=== PATIENT | female | born 1945 | race Caucasian/White ===

== ENCOUNTER 2019-02-05 10:53 | Outpatient (CLI) | payer MEDICARE ==
--- NOTE | 2019-02-05 12:38 | ULT ---
ULTRASOUND ABDOMEN: 02/05/19 HISTORY: Heavy alcohol consumption, abdominal distention. FINDINGS: The liver demonstrates increased echogenicity consistent with fatty infiltration. No focal mass or in trahepatic ductal dilatation is seen. The spleen is normal measuring 8.7 cm in length. No gallstones, gallbladder wall thickening or pericholecystic fluid is seen. The common duct measures [address] The pancreas and abdominal aorta are not satisfactorily visualized due to overlying bowel gas. The visualized portions of the IVC are unremarkable. There is a 1.5 cm right renal cyst. The left ki dney is normal. No free fluid is seen. IMPRESSION: 1. Fatty liver. 2. No evidence of cholelithiasis. 3. Right renal cyst. POS: [facility]
== END 2019-02-05 10:54 | disposition home or self-care (01) ==
LOC: BICULT 10:53
PROVIDERS: ATTEND Family Medicine
DX: R14.0 Abdominal distension (gaseous) (principal); F10.20 Alcohol dependence, uncomplicated; K76.0 Fatty (change of) liver, not elsewhere classified; N28.1 Cyst of kidney, acquired
CPT/HCPCS: 76700

== ENCOUNTER 2022-01-10 16:02 | Inpatient (IN) | payer MEDICARE, OTHER ==
[2022-01-10 16:28] LABS: #Basophils 0.1 thou/uL (0.0-0.2); #Eosinphils 0.2 thou/uL (0.0-0.7); #Lymphocytes 2.2 thou/uL (1.20-3.40); #Monocytes 0.9 thou/uL (0.11-0.59); #Neutrophils 5.8 thou/uL (1.40-6.50); %Basophils 0.8 % (0.0-1.0); %Eosinophils 1.7 % (0.0-10.0); %Lymphocytes 23.5 % (21.0-51.0); Hemoglobin 14.3 g/dL (12.0-16.0); Mean Corpuscular Hemoglobin 31.1 pg (27.0-31.0); Mean Corpuscular Volume 94.3 fL (78.0-98.0); Mean Platelet Volume 7.7 fL (7.4-10.4); Platelet Count 263 thou/uL (130-400); RBC Distribution Width 12.1 % (11.5-14.5); White Blood Cell (WBC) Count 9.1 thou/uL (4.8-10.8)
[2022-01-10 16:39] LABS: Prothrombin Time 13.2 sec (12.0-14.7)
[2022-01-10 16:40] LABS: PTT 32.9 sec (22.9-36.1)
[2022-01-10 16:50] LABS: ALT (SGPT) 19 U/L (8-55); AST (SGOT) 21 U/L (5-34); Albumin 4.3 g/dL (3.4-4.8); Alkaline Phosphatase 80 U/L (40-110); Anion Gap 16 mmol/L (10-20); BUN (Urea Nitrogen) 16 mg/dL (9.8-20.1); Bilirubin, Total 0.6 mg/dL (0.2-1.2); Calc. Creatinine Clearance 0 mL/min (70-130); Calcium 9.7 mg/dL (7.8-10.44); Carbon Dioxide 25 mmol/L (23-31); Chloride 107 mmol/L (98-107); Estimated GFR 51; Globulin 3.1 g/dL (2.4-3.5); Glucose 119 mg/dL (83-110); Potassium 3.7 mmol/L (3.5-5.1); Protein, Total 7.4 g/dL (5.8-8.1); Sodium 144 mmol/L (136-145)
[2022-01-10] MEDS ORDERED: Acetaminophen 325 MG TAB PO PRN (19:37)
[2022-01-10] MEDS ORDERED: Diltiazem 125 MG in Sodium Chloride 0.9% 100 ML IVPB SCH (21:00)
[2022-01-10] MEDS ORDERED: Enoxaparin Sodium 40 MG/0.4 ML SYRINGE SC SCH (21:00)
[2022-01-10 21:54] VITALS: BMI 24.7
[2022-01-10 22:03] LABS: Magnesium 1.9 mg/dL (1.6-2.6); Phosphorus 4.2 mg/dL (2.3-4.7)
[2022-01-11 04:29] LABS: #Basophils 0.1 thou/uL (0.0-0.2); #Eosinphils 0.2 thou/uL (0.0-0.7); #Lymphocytes 3.3 thou/uL (1.20-3.40); #Monocytes 1.2 thou/uL (0.11-0.59); #Neutrophils 4.9 thou/uL (1.40-6.50); %Eosinophils 1.7 % (0.0-10.0); %Lymphocytes 33.9 % (21.0-51.0); %Monocytes 12.8 % (0.0-10.0); %Neutrophils 50.6 % (42.0-75.0); Hemoglobin 13.5 g/dL (12.0-16.0); Mean Corpuscular HGB CONC 33.3 g/dL (32.0-36.0); Mean Corpuscular Hemoglobin 31.4 pg (27.0-31.0); Mean Corpuscular Volume 94.3 fL (78.0-98.0); Mean Platelet Volume 7.8 fL (7.4-10.4); Platelet Count 238 thou/uL (130-400); RBC Distribution Width 12.2 % (11.5-14.5); Red Blood Cell (RBC) Count 4.29 mill/uL (4.20-5.40); White Blood Cell (WBC) Count 9.6 thou/uL (4.8-10.8)
[2022-01-11 05:00] LABS: Anion Gap 12 mmol/L (10-20); BUN (Urea Nitrogen) 13 mg/dL (9.8-20.1); Calc. Creatinine Clearance 57 mL/min (70-130); Carbon Dioxide 25 mmol/L (23-31); Chloride 109 mmol/L (98-107); Estimated GFR 75; Glucose 98 mg/dL (83-110); Potassium 3.4 mmol/L (3.5-5.1); Sodium 143 mmol/L (136-145)
[2022-01-11] MEDS ORDERED: Diltiazem HCl 125 MG in Premix Bag 1 BAG IVPB SCH (09:00)
[2022-01-11] MEDS: Potassium Chloride 20 MEQ TAB PO SCH (09:25)
[2022-01-11] MEDS: Bumetanide 1 MG TAB PO SCH (09:25)
[2022-01-11] MEDS ORDERED: Potassium Chloride 20 MEQ TAB PO SCH (10:00)
[2022-01-11] MEDS ORDERED: Digoxin 0.5 MG/2 ML AMP SLOW IVP SCH (18:30)
[2022-01-11] MEDS: Apixaban 5 MG TAB PO SCH (20:34)
[2022-01-12] MEDS ORDERED: Multivitamin W/ Minerals 1 TAB PO SCH (09:00)
[2022-01-12] MEDS ORDERED: Dronedarone HCl 400 MG TAB PO SCH (09:30)
[2022-01-12 09:54] LABS: Anion Gap 15 mmol/L (10-20); BUN (Urea Nitrogen) 11 mg/dL (9.8-20.1); Calc. Creatinine Clearance 55 mL/min (70-130); Calcium 9.2 mg/dL (7.8-10.44); Carbon Dioxide 22 mmol/L (23-31); Chloride 111 mmol/L (98-107); Estimated GFR 72; Glucose 97 mg/dL (83-110); Potassium 3.8 mmol/L (3.5-5.1); Sodium 144 mmol/L (136-145)
[2022-01-12] MEDS ORDERED: Potassium Chloride 20 MEQ TAB PO SCH (10:00)
[2022-01-12] MEDS: Potassium Chloride 20 MEQ TAB PO SCH (11:56)
[2022-01-12] MEDS: Apixaban 5 MG TAB PO SCH (11:57)
[2022-01-12] MEDS: Bumetanide 1 MG TAB PO SCH (11:57)
[2022-01-12] MEDS: Dronedarone HCl 400 MG TAB PO SCH ×2 (12:06→18:13)
[2022-01-12 17:28] VITALS: BP 160/70; TEMP 97.5
== END 2022-01-12 19:30 | disposition home or self-care (01) | DRG 310 ==
LOC: ERS 16:02 → ERHOLD 17:40 → OBSVTOIN 20:08 → 2NO 21:36
PROVIDERS: ADMIT Student in an Organized Health Care Education/Training Program; ATTEND Family Medicine
PROC: B24BZZ4 Ultrasonography of Heart with Aorta, Transesophageal (ICD-10-PCS; principal; 2022-01-12)
PROC: 5A2204Z Restoration of Cardiac Rhythm, Single (ICD-10-PCS; 2022-01-12)
DX: I48.0 Paroxysmal atrial fibrillation (principal); Z20.822 Contact with and (suspected) exposure to COVID-19; I10 Essential (primary) hypertension; E78.5 Hyperlipidemia, unspecified; K58.9 Irritable bowel syndrome, unspecified; M81.0 Age-related osteoporosis without current pathological fracture; I48.92 Unspecified atrial flutter; E87.6 Hypokalemia; Z88.1 Allergy status to other antibiotic agents; Z79.899 Other long term (current) drug therapy
CPT/HCPCS: 36415; 71045; 80048; 80053; 83735; 84100; 84443; 84484; 85025; 85610; 85730; 92960; 93005; 93010; 93306; 93312; 96365; 96366; 96376; J1160; J1650; U0003; U0005

== ENCOUNTER 2022-03-20 11:39 | Emergency (ER) | payer MEDICARE, OTHER ==
[2022-03-20 12:24] LABS: #Lymphocytes 2.7 thou/uL (1.20-3.40); #Monocytes 0.8 thou/uL (0.11-0.59); #Neutrophils 7.2 thou/uL (1.40-6.50); %Basophils 0.2 % (0.0-1.0); %Eosinophils 0.3 % (0.0-10.0); %Lymphocytes 25.4 % (21.0-51.0); %Monocytes 7.6 % (0.0-10.0); %Neutrophils 66.4 % (42.0-75.0); Hemoglobin 14.1 g/dL (12.0-16.0); Mean Corpuscular Hemoglobin 31.5 pg (27.0-31.0); Mean Corpuscular Volume 92.7 fL (78.0-98.0); Mean Platelet Volume 8.2 fL (7.4-10.4); Platelet Count 257 thou/uL (130-400); Red Blood Cell (RBC) Count 4.46 mill/uL (4.20-5.40); White Blood Cell (WBC) Count 10.8 thou/uL (4.8-10.8)
[2022-03-20 12:38] LABS: ALT (SGPT) 22 U/L (8-55); AST (SGOT) 24 U/L (5-34); Albumin 4.3 g/dL (3.4-4.8); Alkaline Phosphatase 72 U/L (40-110); Anion Gap 18 mmol/L (10-20); BUN (Urea Nitrogen) 16 mg/dL (9.8-20.1); Calc. Creatinine Clearance 0 mL/min (70-130); Calcium 9.8 mg/dL (7.8-10.44); Carbon Dioxide 20 mmol/L (23-31); Chloride 106 mmol/L (98-107); Estimated GFR 39; Globulin 3.4 g/dL (2.4-3.5); Glucose 107 mg/dL (83-110); Potassium 3.6 mmol/L (3.5-5.1); Protein, Total 7.7 g/dL (5.8-8.1); Sodium 140 mmol/L (136-145)
[2022-03-20] MEDS ORDERED: PROPOFOL 20 ML ONE (14:28)
== END 2022-03-20 16:45 | disposition home or self-care (01) ==
LOC: ERS 11:39
DX: I48.91 Unspecified atrial fibrillation (principal); E78.5 Hyperlipidemia, unspecified; I10 Essential (primary) hypertension; Z79.01 Long term (current) use of anticoagulants; Z79.899 Other long term (current) drug therapy
CPT/HCPCS: 36415; 71045; 80053; 84443; 84484; 85025; 92960; 93005; 96374; J2704

== ENCOUNTER 2023-02-19 14:12 | Outpatient (CLI) | payer MEDICARE | END 2023-02-19 14:13 | disposition home or self-care (01) | LOC: BICMAMMO 14:12 | PROVIDERS: ATTEND Family Medicine | DX: Z12.31 Encounter for screening mammogram for malignant neoplasm of breast (principal) | CPT/HCPCS: 77063; 77067 ==

== ENCOUNTER 2023-08-28 12:07 | Emergency (ER) | payer MEDICARE ==
[2023-08-28 12:45] LABS: #Eosinphils 0.1 thou/uL (0.0-0.7); #Monocytes 0.8 thou/uL (0.11-0.59); #Neutrophils 3.8 thou/uL (1.40-6.50); %Basophils 0.4 % (0.0-1.0); %Eosinophils 1.8 % (0.0-10.0); %Lymphocytes 31.5 % (21.0-51.0); %Monocytes 11.1 % (0.0-10.0); %Neutrophils 55.1 % (42.0-75.0); Hematocrit 40.2 % (36.0-47.0); Hemoglobin 13.3 g/dL (12.0-16.0); Mean Corpuscular HGB CONC 33.1 g/dL (32.0-36.0); Mean Corpuscular Hemoglobin 31.3 pg (27.0-31.0); Mean Corpuscular Volume 94.6 fl (78.0-98.0); Mean Platelet Volume 9.6 fL (7.4-10.4); Platelet Count 267 10x3/uL (130-400); RBC Distribution Width 12.9 % (11.5-14.5); Red Blood Cell (RBC) Count 4.25 mill/uL (4.20-5.40); White Blood Cell (WBC) Count 6.8 10x3/uL (4.8-10.8)
[2023-08-28 13:08] LABS: ALT (SGPT) 17 U/L (8-55); AST (SGOT) 20 U/L (5-34); Albumin 4.4 g/dL (3.4-4.8); Alkaline Phosphatase 66 U/L (40-110); Anion Gap 11 mmol/L (10-20); BUN (Urea Nitrogen) 13 mg/dL (9.8-20.1); Bilirubin, Total 0.6 mg/dL (0.2-1.2); Calc. Creatinine Clearance 0 mL/min (70-130); Calcium 9.7 mg/dL (7.8-10.44); Carbon Dioxide 25 mmol/L (23-31); Chloride 110 mmol/L (98-107); Estimated GFR 44; Globulin 3.2 g/dL (2.4-3.5); Glucose 92 mg/dL (83-110); Lipase 44 U/L (8-78); Potassium 4.5 mmol/L (3.5-5.1); Protein, Total 7.6 g/dL (5.8-8.1); Sodium 141 mmol/L (136-145)
[2023-08-28 13:10] LABS: Troponin I Less than 0.010 ng/mL (< 0.028)
[2023-08-28 16:40] LABS: Troponin I Less than 0.010 ng/mL (< 0.028)
== END 2023-08-28 17:10 | disposition home or self-care (01) ==
LOC: ERS 12:07
DX: R00.0 Tachycardia, unspecified (principal); I10 Essential (primary) hypertension; Z79.899 Other long term (current) drug therapy
CPT/HCPCS: 36415; 71045; 80053; 83690; 84443; 84484; 85025; 93005

== ENCOUNTER 2024-03-17 10:09 | Day surgery (SDC) | payer MEDICARE ==
[2024-03-17] MEDS ORDERED: PROPOFOL 20 ML ONE (11:52)
[2024-03-17] MEDS ORDERED: Lidocaine 1% PF 5 ML VIAL ONE (11:52)
== END 2024-03-17 14:02 | disposition home or self-care (01) ==
LOC: SDC 10:09
PROVIDERS: ATTEND Internal Medicine Cardiovascular Disease
PROC: 5A2204Z Restoration of Cardiac Rhythm, Single (ICD-10-PCS; principal; 2024-03-17)
DX: I48.91 Unspecified atrial fibrillation (principal); I10 Essential (primary) hypertension; E78.5 Hyperlipidemia, unspecified; Z79.899 Other long term (current) drug therapy; Z79.01 Long term (current) use of anticoagulants; Z88.8 Allergy status to other drugs, medicaments and biological substances; Z88.0 Allergy status to penicillin; Z88.1 Allergy status to other antibiotic agents
CPT/HCPCS: 92960; J2704; 93005

== ENCOUNTER 2025-06-22 15:08 | Outpatient (CLI) | payer MEDICARE, OTHER ==
[2025-06-22 16:04] LABS: #Basophils 0.03 10x3/uL (0.0-0.2); #Eosinophils 0.19 10x3/uL (0.0-0.7); #Monocytes 1.00 10x3/uL (0.11-0.59); #Neutrophils 3.97 10x3/uL (1.40-6.50); %Basophils 0.4 % (0.0-1.0); %Eosinophils 2.5 % (0.0-10.0); %Lymphocytes 32.0 % (21.0-51.0); %Monocytes 13.1 % (0.0-10.0); %Neutrophils 51.7 % (42.0-75.0); Hematocrit 36.7 % (36.0-47.0); Hemoglobin 11.9 g/dL (12.0-16.0); Mean Corpuscular Hemoglobin 29.5 pg (27.0-31.0); Mean Corpuscular Volume 91.1 fL (78.0-98.0); Platelet Count 258 10x3/uL (130-400); Red Blood Cell (RBC) Count 4.03 mill/uL (4.20-5.40); White Blood Cell (WBC) Count 7.66 10x3/uL (4.8-10.8)
[2025-06-22 16:27] LABS: Anion Gap 16 mmol/L (10-20); BUN (Urea Nitrogen) 29 mg/dL (9.8-20.1); Calc. Creatinine Clearance 0 mL/min (70-130); Calcium 9.4 mg/dL (7.8-10.44); Carbon Dioxide 28 mmol/L (23-31); Chloride 101 mmol/L (98-107); Glucose 100 mg/dL (83-110); Potassium 3.3 mmol/L (3.5-5.1); Sodium 142 mmol/L (136-145)
== END 2025-06-22 15:09 | disposition home or self-care (01) ==
LOC: LABBT 15:08
PROVIDERS: ATTEND Internal Medicine Cardiovascular Disease
DX: Z01.812 Encounter for preprocedural laboratory examination (principal); I48.0 Paroxysmal atrial fibrillation
CPT/HCPCS: 80048; 85025